=== PATIENT | male | born 1995 | race Caucasian/White ===

== ENCOUNTER 2018-08-19 00:23 | Emergency (ER) | payer SELFPAY ==
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
[2018-08-19 01:30] VITALS: BP 125/82
== END 2018-08-19 01:45 | disposition home or self-care (01) ==
LOC: ER 00:34
DX: S00.83XA Contusion of other part of head, initial encounter (principal); S09.90XA Unspecified injury of head, initial encounter; Y29.XXXA Contact with blunt object, undetermined intent, initial encounter
CPT/HCPCS: 99281